=== PATIENT | female | born 2005 | race Caucasian/White ===

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

== ENCOUNTER 2024-01-14 23:39 | Emergency (ER) | payer OTHER, SELFPAY ==
[2024-01-14 23:42] VITALS: BP 139/61; PULSE 92; RESP 16; TEMP 36.5; O2SAT 100; BMI 23.3
--- NOTE | 2024-01-14 23:48 | DI.RAD.S_ITS ---
PROCEDURE: XR CHEST 1V INDICATIONS: chest pain/thoracic back, cough TECHNIQUE: One view of the chest was acquired. COMPARISON: None. FINDINGS: Surgical changes and devices: None. Lungs and pleura: Lungs are clear. No pleural effusions or pneumothorax. Mediastinum: Mediastinal contours appear normal. Heart size is normal. Bones and chest wall: No suspicious bony lesions. Overlying soft tissues appear unremarkable. IMPRESSION: No acute cardiopulmonary abnormality is seen. Approved by: Tarik Daniels M.D. on 01/15/2024 at 1:24
--- NOTE | 2024-01-14 23:50 | ED.GENADULT ---
HPI - General Adult General Chief complaint: Shortness of Breath/Dyspnea Stated complaint: CHEMICAL INHALATION Time Seen by Provider: 01/14/24 23:43 Source: patient, RN notes reviewed and old records reviewed Mode of arrival: Ambulatory Limitations: no limitations History of Present Illness HPI narrative: 18-year-old female with history of anxiety/depression/ADHD who presents with complaint of potential chemical inhalation. Patient states for the past 2-3 days they have had discomfort in her chest thoracic back and sides with deep inhalation. They noticed symptoms started while at work. They has been exposed to bleach fumes. Deny mixing any chemicals such as ammonia. Patient states he had similar symptoms few times in the past but have not persisted. They did reach out to poison control recommended they come for evaluation although they stated symptoms were atypical for bleach exposure. Patient states no fevers or chills. No nasal congestion. Does describe a little bit of sore throat. No rashes or skin changes. No hoarseness. Patient states does have some pain with inhalation, movement is also little bit uncomfortable. They note a cough they note they had some green productive sputum. Has had some nausea but no vomiting. No diarrhea or constipation, no urinary symptoms. No swelling of extremities. Patient is dextroamphetamine, still citalopram, buspirone and hydroxyzine for daily medications. No recent changes. Does smoke and vape tobacco. Quit using alcohol about 6 months ago. They do use marijuana sometimes they deny any other inhalants or recreational drugs. Patient does have a primary care they follow with. No estrogen, no long distance travel, no known pulmonary or cardiac history reported. Related Data Home Medications Medication Instructions Recorded Confirmed buspirone 15 mg tablet 15 mg PO ONCE 11/11/23 11/11/23 dextroamphetamine-amphetamine 10 10 mg PO DAILY 11/11/23 11/11/23 mg tablet (Adderall) escitalopram oxalate 10 mg tablet 10 mg PO DAILY 11/11/23 11/11/23 (Lexapro) hydroxyzine HCl 25 mg tablet 25 mg PO BEDTIME 11/11/23 11/11/23 Allergies Allergy/AdvReac Type Severity Reaction Status Date / Time No Known Drug Allergies Allergy Verified 11/11/23 08:10 Review of Systems Review of Systems ROS Unobtainable: All systems reviewed & are unremarkable except as noted in HPI and below Patient History Social History Smoking Status: Current every day smoker Smoking Status: Current every day smoker Exam Narrative Exam Narrative: GEN: well nourished, well appearing female, alert and oriented x [default value], patient appears to be in mild distress. HEENT: Atraumatic, pupils are equal round reactive to light, extraocular movements are intact, nares are clear, there is no conjunctival pallor. Throat is clear without any exudates, erythema, tonsillar enlargement or uvular deviation, normal speech no stridor, no hoarseness. HEART: Regular rate and rhythm without murmur, clicks, rubs. LUNGS:Lungs clear to auscultation, no wheezes, rales, crackles, chest moves symmetrically, no tachypnea accessory muscle use. ABD:bowel sounds normal, soft, non-tender, no guarding, rebound, rigidity, no masses noted, no hepatosplenomegaly :No CVA tenderness MSCL: Non-tender, no muscle atrophy, muscles strength 5/5 upper and lower extremities, full range of motion, normal gait NEURO:CN 2-12 intact, sensation normal SKIN: No rash, erythema or other skin changes Initial Vital Signs Initial Vital Signs: Vital Signs Temperature 97.7 F 01/14/24 23:42 Pulse Rate 92 H 01/14/24 23:42 Respiratory Rate 16 01/14/24 23:42 Blood Pressure 139/61 01/14/24 23:42 Pulse Oximetry 100 01/14/24 23:42 Oxygen Delivery Method Room Air 01/14/24 23:42 Course Orders Ordered: ED Orders 01/14/24 23:48 XR chest 1V Stat EKG-12 Lead Stat 01/14/24 23:58 Complete Blood Count AUTO DIFF Stat Comprehensive Metabolic Panel Stat Covid-19 + FLU A/B + RSV - PCR Stat D Dimer Stat Lipase Stat Troponin & CK Cardiac Panel Stat Vital Signs Vital signs: Vital Signs - 8 hr 01/14/24 23:42 Temperature 97.7 F Pulse Rate 92 H Respiratory Rate 16 Blood Pressure 139/61 Pulse Oximetry 100 Oxygen Delivery Method Room Air Medical Decision Making Lab Data 01/14/24 23:58 01/14/24 23:58 Labs: Lab Results 01/14/24 Range/Units 23:58 WBC 9.0 (4.5-11.0) X10^3/uL RBC 4.31 (4.0-5.2) X10^6/uL Hgb 13.1 (12.0-16.0) g/dL Hct 37.9 (36-46) % MCV 87.9 (80-100) fL MCH 30.5 (26-34) PG MCHC 34.7 (30-36) % RDW 13.6 (11.6-14.8) % Plt Count 295 (150-400) X10^3/uL Neut % (Auto) 64.5 (50-75) % Lymph % (Auto) 27.1 (25-40) % [place] % (Auto) 5.8 (3-14) % Eos % (Auto) 2.0 (2-4) % Baso % (Auto) 0.6 (0-2) % Neut # (Auto) 5800 (2504-3313) /uL Lymph # (Auto) 2400 (9172-9621) /uL [place] # (Auto) 500 (0-900) /uL Eos # (Auto) 200 (0-450) /uL Baso # (Auto) 100 (0-100) /uL D-Dimer 343 (<500) ng/ml Sodium 138 (137-145) mmol/L Potassium 3.9 (3.4-5.1) mmol/L Chloride 105 (98-107) mmol/L Carbon Dioxide 25 (22-32) mmol/L BUN 14 (7-17) mg/dL Creatinine 0.48 L (0.52-1.04) mg/dL Estimated GFR > 60 (>60) mL/min BUN/Creatinine Ratio 29.2 H (6-22) Glucose 80 (70-100) mg/dL Calcium 9.6 (8.4-10.2) mg/dL Total Bilirubin 0.6 (0.2-1.3) mg/dL AST 31 (14-36) IU/L ALT 27 (<35) IU/L Alkaline Phosphatase 60 (38-126) U/L Total Creatine Kinase 216 H (30-135) U/L Troponin I < 0.012 (0.01-0.034) ng/mL Total Protein 8.1 (6.3-8.2) g/dL Albumin 5.0 (3.5-5.0) g/dL Globulin 3.1 (1.7-4.1) g/dL Albumin/Globulin Ratio 1.6 (1.0-2.8) Lipase 95 (23-300) U/L SARS-CoV-2 (PCR) Negative (Negative) Influenza A (RT-PCR) Flu a negative (NEGATIVE) Influenza B (RT-PCR) Flu b negative (NEGATIVE) RSV (PCR) Negative (Negative) Imaging Data Chest x-ray: My Impression: no acute process, FB consistent with patient piercings. ECG Data Attestation: I personally reviewed and interpreted this ECG as follows: Prior ECG tracings: not available for review Interpretation: Sinus rhythm rate of 75 IL 60 QRS 88 QTC 408, Q 2 3 AVF T-waves are peaked but not throughout. Other acute changes no priors for comparison, S1 Q 3 but no T3. MDM Narrative Medical decision making narrative: 18-year-old female who comes with concern of chest, thoracic pain but also sore throat some green productive sputum. They were concerned about exposure to bleach fumes deny mixing any other chemicals such as ammonia. Patient has been in contact with poison control who states symptoms would be atypical for bleach inhalation exposure. Patient does describe chest discomfort, some infectious symptoms such as green productive sputum and sore throat. Patient overall is well-appearing with a benign exam. Pulses 92 but 100% room air without any tachypnea lungs are clear. Patient has not taken anything for discomfort at home. Labs show a count of 9, hemoglobin of 13 platelets of 295.? D-dimer is negative at 343.? Negative electrolytes, creatinine 0.48, glucose 80 with negative LFTs total CK is 216, troponin is negative. COVID/influenza/RSV is negative. Chest x-ray shows no acute change on prelim. There has been delay from EMR it has been read but is unavailable. Discussed with patient she would like to return home she is to work this morning. No clear source of her pain she has had least 2 days of symptoms with negative troponin negative D-dimer otherwise reassuring chest x-ray she is otherwise well-appearing with a appropriate vitals. Discharge Plan Departure Patient Disposition: Home Clinical Impression: Atypical chest pain Activity Restrictions/Additional Instructions: The final report for your chest x-ray has not resulted. Your workup otherwise is very appropriate in her chest x-ray does not show any obvious changes on preliminary review. Please return if you are having worsening symptoms, increasing, shortness of breath, fevers, lightheadedness or passing out, persistent vomiting or other new or concerning changes. Prescriptions: No Action dextroamphetamine-amphetamine [Adderall] 10 mg tablet 10 mg PO DAILY buspirone 15 mg tablet 15 mg PO ONCE hydroxyzine HCl 25 mg tablet 25 mg PO BEDTIME escitalopram oxalate [Lexapro] 10 mg tablet 10 mg PO DAILY Referrals: Miscellaneous,Doctor, MD [Primary Care Provider] - Stand Alone Forms: Patient Portal/API
[2024-01-15 00:14] LABS: Add Manual Diff / Slide Review NO; Basophils Absolute Auto 100 /uL (0-100); Basophils Percent Auto 0.6 % (0-2); Eosinophils Absolute Auto 200 /uL (0-450); Hematocrit 37.9 % (36-46); Hemoglobin 13.1 g/dL (12.0-16.0); Lymphocytes Absolute Auto 2400 /uL (1100-4500); Lymphocytes Percent Auto 27.1 % (25-40); Mean Corpuscular HGB Conc 34.7 % (30-36); Mean Corpuscular Hemoglobin 30.5 PG (26-34); Mean Corpuscular Volume 87.9 fL (80-100); Monocytes Absolute Auto 500 /uL (0-900); Monocytes Percent Auto 5.8 % (3-14); Neutrophils Absolute Auto 5800 /uL (1500-7000); Neutrophils Percent Auto 64.5 % (50-75); Platelet Count 295 X10^3/uL (150-400); Red Blood Cell Count 4.31 X10^6/uL (4.0-5.2); Red Cell Distribution Width 13.6 % (11.6-14.8)
[2024-01-15 00:18] VITALS: PULSE 91; O2SAT 99
[2024-01-15 00:24] LABS: Alanine Aminotransferase 27 IU/L (<35); Albumin Globulin Ratio 1.6 (1.0-2.8); Alkaline Phosphatase 60 U/L (38-126); Aspartate Aminotransferase 31 IU/L (14-36); BUN Creatinine Ratio 29.2 (6-22); Bilirubin Total 0.6 mg/dL (0.2-1.3); Blood Urea Nitrogen 14 mg/dL (7-17); Calcium 9.6 mg/dL (8.4-10.2); Carbon Dioxide 25 mmol/L (22-32); Chloride 105 mmol/L (98-107); Creatine Kinase 216 U/L (30-135); D Dimer 343 ng/ml (<500); Estimated Glomerular Filt Rate > 60 mL/min (>60); Globulin 3.1 g/dL (1.7-4.1); Glucose 80 mg/dL (70-100); HEMOLYSIS < 15 (0-50); Lipase 95 U/L (23-300); Potassium 3.9 mmol/L (3.4-5.1); Sodium 138 mmol/L (137-145); Total Protein 8.1 g/dL (6.3-8.2)
[2024-01-15 00:30] VITALS: PULSE 75; RESP 24; O2SAT 100
[2024-01-15 00:36] LABS: Troponin I < 0.012 ng/mL (0.01-0.034)
[2024-01-15 00:47] LABS: Influenza A - CEPHEID Flu A NEGATIVE (NEGATIVE); Influenza B - CEPHEID Flu B NEGATIVE (NEGATIVE); Respiratory Syncytial Virus Negative (Negative)
[2024-01-15 00:53] LABS: COVID-19 CEPHEID 4-PLEX PCR Negative (Negative)
[2024-01-15 01:00] VITALS: PULSE 78; RESP 17; O2SAT 98
[2024-01-15 01:30] VITALS: PULSE 68; O2SAT 95
[2024-01-15 01:38] VITALS: BP 116/65; PULSE 72; O2SAT 100
--- NOTE | 2024-01-15 01:55 | PC.NURSE ---
Pt states that she needs to leave due to work in the morning. Pt was advised of AMA paperwork and its meaning. Pt advised that the EMD did not have all of her results and is unable to make a definitive determination. Pt advised that leaving before the EMD was able to process all results may lead to worsening condition or . Pt did sign this form but DC paperwork came from the EMD. Pt was advised that her chest X-ray had not resulted but her blood work did not show any adverse findings. Both AMA and DC signature page filed for hospital records.
== END 2024-01-15 01:45 | disposition home or self-care (01) ==
PROVIDERS: Emergency Provider Emergency Medicine
DX: R07.89 Other chest pain (principal); M54.6 Pain in thoracic spine; J02.9 Acute pharyngitis, unspecified; Z77.110 Contact with and (suspected) exposure to air pollution; Z57.39 Occupational exposure to other air contaminants; Y99.0 Civilian activity done for income or pay; F17.200 Nicotine dependence, unspecified, uncomplicated
CPT/HCPCS: 0241U; 36415; 71045; 80053; 82550; 83690; 84484; 85025; 85379; 93005; 99283; 99284

== ENCOUNTER 2024-10-31 22:55 | Emergency (ER) | payer BC, SELFPAY ==
[2024-10-31 23:01] VITALS: BP 133/78; PULSE 87; RESP 16; TEMP 37.3; O2SAT 100; BMI 23.9
--- NOTE | 2024-10-31 23:05 | DI.US.S_ITS ---
PROCEDURE: US OB <= 14 WEEKS FETUS INDICATIONS: vag bleeding 10weeks OUTSIDE/PRIOR DATING DATA: Last menstrual period (LMP): 08/15/2024 LMP-based estimated date of delivery (KARLA): 05/22/2025 First dating scan (date and location): 10/31/2024 Estimated date of delivery (KARLA) from first dating scan: 06/23/2025. TECHNIQUE: Real-time scanning was performed of the fetus and maternal pelvic organs, with image documentation. COMPARISON: None. FINDINGS: Embryo: Irregular appearing intrauterine gestational sac is seen. No pole or yolk sac is seen. Mean gestational sac diameter measures 1.6 cm with estimated gestational age of 6 weeks, 3 days. Estimated gestational age based on last menstrual period is 11 weeks 0 day. Heart rate: No cardiac activity is detected. Maternal organs: Ovaries are visualized and are within normal limits. IMPRESSION: 1. Irregular appearing intrauterine gestational sac without yolk sac or pole. Finding is concerning for spontaneous . Follow-up with serial beta hCG levels and follow-up ultrasound is recommended. 2. Normal appearing bilateral ovaries. No evidence ectopic gestation. We strive to produce accurate, complete, and clear reports of imaging services. To assist us in improving patient care, this report was composed using standard report templates and voice recognition software. Therefore, it may contain abnormal punctuation, insertions and/or omissions. Occasional wrong-word or sound-alike substitutions may occur. Though we review the report and make efforts to correct it, we do recommend that the report be read carefully in proper context to recognize any text inaccuracies. Dictated by: Costa Wilkerson M.D. on 10/31/2024 at 23:58 Approved by: Costa Wilkerson M.D. on 11/01/2024 at 0:01
--- NOTE | 2024-10-31 23:50 | ED_ITS ---
HPI - General Chief complaint: OB/Uterine Contractions Stated complaint: 10 weeks , small amount of bleeding Time Seen by Provider: 10/31/24 23:05 Source: patient Mode of arrival: Ambulatory Limitations: no limitations History of Present Illness HPI Narrative: 19-year-old female no significant past medical history comes into the ED complaints of pelvic cramping vaginal bleeding states she is approximately she has not on any blood thinners denies any trauma or falls denies any other symptoms such as headache visual disturbances chest pain shortness breath fever chills nausea vomiting abdominal pain or any other GI/ symptoms at this time. Related Data Home Medications Medication Instructions Recorded Confirmed buspirone 15 mg tablet 15 mg PO ONCE 11/11/23 11/11/23 dextroamphetamine-amphetamine 10 10 mg PO DAILY 11/11/23 11/11/23 mg tablet (Adderall) escitalopram oxalate 10 mg tablet 10 mg PO DAILY 11/11/23 11/11/23 (Lexapro) hydroxyzine HCl 25 mg tablet 25 mg PO BEDTIME 11/11/23 11/11/23 Allergies Allergy/AdvReac Type Severity Reaction Status Date / Time No Known Drug Allergies Allergy Verified 11/11/23 08:10 Review of Systems Review of Systems Narrative: General: Denies fever, chills, weight loss HEENT: Denies headache, eye drainage, eye irritation, head trauma, sore throat, voice change Cardiovascular: Denies any chest pain, palpitations, shortness of breath, tachycardia Respiratory: Denies any shortness of breath, cough, wheeze, stridor GI/: Positive vaginal bleeding, pelvic pain Denies any abdominal pain, nausea, vomiting, diarrhea, bright red blood per rectum, melanotic stools, urinary frequency, urinary retention, dysuria, hematuria MSK: Denies any joint pain, muscle pains, swelling Skin: Denies any rashes, lesions, discoloration Neuro: Denies any headache, lightheadedness, dizziness, fainting, weakness Psych: Denies SI/HI Exam Narrative Exam Narrative: General: Cooperative, comfortable, well-developed, not in acute distress HEENT: Normocephalic, atraumatic, PERRLA, normal sclera, eyelids normal, Neck: Active full range of motion, atraumatic Chest: Normal to inspection, negative crepitus, no overlying erythema ecchymosis Respiratory: Normal respiratory effort, not in acute respiratory distress, clear to auscultation bilaterally negative cough, wheeze, tachypnea, rhonchi, rales Cardiology: Regular rate rhythm negative gallop, murmur, rubs GI/: Normal to inspection, soft, nonrigid, no tenderness to palpation, exam deferred MSK: Full range of active range of motion of all 4 extremities, atraumatic Skin: No rashes lesions noted Neuro: Alert awake oriented x3, moves all 4 extremities spontaneously, cranial nerves intact, able to answer all questions appropriately follows commands appropriately Psych: Cooperative, negative suicidal or homicidal ideations Initial Vital Signs Initial Vital Signs: Vital Signs Temperature 99.2 F 10/31/24 23:01 Pulse Rate 87 10/31/24 23:01 Respiratory Rate 16 10/31/24 23:01 Blood Pressure 133/78 10/31/24 23:01 Pulse Oximetry 100 10/31/24 23:01 Oxygen Delivery Method Room Air 10/31/24 23:01 Course Orders Ordered: ED Orders 10/31/24 23:05 OB <= 14 weeks fetus Stat 10/31/24 23:49 ABO RH Type Stat BMP [Basic Metabolic Panel] Stat CBC Auto Diff [Complete Blood Count AUTO DIFF] Stat HCG Quantitative /Beta subunit Stat 11/01/24 00:45 Urine Microscopic Stat Vital Signs Vital signs: Vital Signs - 8 hr 10/31/24 23:01 10/31/24 23:52 10/31/24 23:52 Temperature 99.2 F Pulse Rate 87 103 H Respiratory Rate 16 Blood Pressure 133/78 123/71 Pulse Oximetry 100 100 Oxygen Delivery Method Room Air 11/01/24 00:00 Temperature Pulse Rate 95 H Respiratory Rate 18 Blood Pressure Pulse Oximetry 100 Oxygen Delivery Method MDM - OB/Uterine Contractions Differential Diagnosis Differential diagnosis: Likely other (Electrolyte abnormality, urinary tract infection, threatened ,) Lab Data 10/31/24 23:49 10/31/24 23:49 Labs: Lab Results 10/31/24 11/01/24 Range/Units 23:49 00:45 WBC 7.9 (4.5-11.0) X10^3/uL RBC 3.93 L (4.0-5.2) X10^6/uL Hgb 12.6 (12.0-16.0) g/dL Hct 36.2 (36-46) % MCV 92.1 (80-100) fL MCH 32.1 (26-34) PG MCHC 34.8 (30-36) % RDW 12.7 (11.6-14.8) % Plt Count 273 (150-400) X10^3/uL Neut % (Auto) 50.9 (50-75) % Lymph % (Auto) 37.5 (25-40) % [place] % (Auto) 7.5 (3-14) % Eos % (Auto) 3.4 (2-4) % Baso % (Auto) 0.7 (0-2) % Neut # (Auto) 4000 (7803-7987) /uL Lymph # (Auto) 3000 (8040-5627) /uL [place] # (Auto) 600 (0-900) /uL Eos # (Auto) 300 (0-450) /uL Baso # (Auto) 100 (0-100) /uL Sodium 136 L (137-145) mmol/L Potassium 3.8 (3.4-5.1) mmol/L Chloride 103 (98-107) mmol/L Carbon Dioxide 23 (22-32) mmol/L BUN 9 (7-17) mg/dL Creatinine 0.37 L (0.52-1.04) mg/dL Estimated GFR > 60 (>60) mL/min BUN/Creatinine Ratio 24.3 H (6-22) Glucose 93 (70-100) mg/dL Calcium 9.5 (8.4-10.2) mg/dL Urine RBC 0-1/hpf (0-5/HPF) Urine WBC 0-1/hpf (0-5/HPF) Ur Squamous Epith Cells 5-10 /hpf H (0-5/HPF) Urine Bacteria Few (2-10) H (None) Ur Culture Indicated? Cult not indicated Vol Urine Centrifuged 10ml (spun) Blood Type A Positive Point of Care Testing Test Results Positive Urine Dip Bedside Urine Glucose Negative Bedside Urine Bilirubin - Negative Bedside Urine Ketone - Negative Urine Specific [place] 1.010 Bedside Urine Occult Blood +/- Bedside Urine pH 6.5 Bedside Urine Protein - Negative Bedside Urine Urobilinogen - Negative Bedside Urine Nitrite - Negative Bedside Urine Leukocytes - Negative Esterase Imaging Data US - REGIONAL TRANSFER LIAISON: Radiologist's Impression: [address] [address] Ultrasound Report Signed Patient: Tianna Means MR#: [id number] : 2005 Acct:[id number] Age/Sex: 19 / F Date of Service: 10/31/24 Loc: ED Accession Number: [id number] Procedure: US OB <= 14 weeks fetus Ordering Provider: Misha Byers D.O. PROCEDURE: US OB <= 14 WEEKS FETUS INDICATIONS: vag bleeding 10weeks OUTSIDE/PRIOR DATING DATA: Last menstrual period (LMP): 08/15/2024 LMP-based estimated date of delivery (KARLA): 05/22/2025 First dating scan (date and location): 10/31/2024 Estimated date of delivery (KARLA) from first dating scan: 06/23/2025. TECHNIQUE: Real-time scanning was performed of the fetus and maternal pelvic organs, with image documentation. COMPARISON: None. FINDINGS: Embryo: Irregular appearing intrauterine gestational sac is seen. No pole or yolk sac is seen. Mean gestational sac diameter measures 1.6 cm with estimated gestational age of 6 weeks, 3 days. Estimated gestational age based on last menstrual period is 11 weeks 0 day. Heart rate: No cardiac activity is detected. Maternal organs: Ovaries are visualized and are within normal limits. IMPRESSION: 1. Irregular appearing intrauterine gestational sac without yolk sac or pole. Finding is concerning for spontaneous . Follow-up with serial beta hCG levels and follow-up ultrasound is recommended. 2. Normal appearing bilateral ovaries. No evidence ectopic gestation. MDM Narrative Medical decision making narrative: 19-year-old female without any significant past medical history presents for pelvic cramping and vaginal bleeding patient states that she is approximately 10 weeks , 1st . Patient had lab work imaging urinalysis performed here. Urinalysis not consistent with asymptomatic bacteriuria, lab work unremarkable, ultrasound showing spontaneous . Patient states that she does not have an OBGYN, I had a discussion with Dr. Garcia, of OBGYN, she states no additional recommendations/intervention at this time however patient to follow up in their clinic in the next 24-48 hours states that they will reach out to her, patient was given strict return precautions she verbalized understanding of this and agrees to being discharged home with outpatient follow up Discharge Plan Departure Patient Disposition: Home Clinical Impression: Spontaneous Instructions: DI for Miscarriage Activity Restrictions/Additional Instructions: Please follow up with OBGYN in outpatient setting for your spontaneous Please read the discharge instructions sheet carefully and bring all papers to all doctor follow-up visits, as it may contain information that your doctor may want to see. Disease processes change and evolve, if your symptoms worsen or if you develop any new symptoms that are concerning to you please return for evaluation. Your evaluation today does not show any evidence of any life- threatening/serious illnesses requiring admission to the hospital or surgery. Please follow-up with your doctor for re-evaluation in approximately 1 day. Seek immediate medical attention for any worrisome symptoms. *If you do not have a primary care provider please contact the [facility] Resource line at [phone]. They will ask some questions about your medical history and help get you set up with a doctor in the community. Prescriptions: No Action dextroamphetamine-amphetamine [Adderall] 10 mg tablet 10 mg PO DAILY buspirone 15 mg tablet 15 mg PO ONCE hydroxyzine HCl 25 mg tablet 25 mg PO BEDTIME escitalopram oxalate [Lexapro] 10 mg tablet 10 mg PO DAILY Referrals: Miscellaneous,Doctor, [Primary Care Provider] - Suze Garcia MD [Physician] - As soon as possible Stand Alone Forms: Patient Portal/API/Survey
[2024-10-31 23:52] VITALS: BP 123/71; PULSE 103; O2SAT 100
[2024-10-31 23:58] LABS: Add Manual Diff / Slide Review NO; Basophils Absolute Auto 100 /uL (0-100); Basophils Percent Auto 0.7 % (0-2); Eosinophils Absolute Auto 300 /uL (0-450); Eosinophils Percent Auto 3.4 % (2-4); Hematocrit 36.2 % (36-46); Hemoglobin 12.6 g/dL (12.0-16.0); Lymphocytes Absolute Auto 3000 /uL (1100-4500); Lymphocytes Percent Auto 37.5 % (25-40); Mean Corpuscular HGB Conc 34.8 % (30-36); Mean Corpuscular Hemoglobin 32.1 PG (26-34); Mean Corpuscular Volume 92.1 fL (80-100); Monocytes Absolute Auto 600 /uL (0-900); Monocytes Percent Auto 7.5 % (3-14); Neutrophils Absolute Auto 4000 /uL (1500-7000); Neutrophils Percent Auto 50.9 % (50-75); Platelet Count 273 X10^3/uL (150-400); Red Blood Cell Count 3.93 X10^6/uL (4.0-5.2); Red Cell Distribution Width 12.7 % (11.6-14.8); White Blood Cell Count 7.9 X10^3/uL (4.5-11.0)
[2024-11-01] VITALS: PULSE 95; RESP 18; O2SAT 100
[2024-11-01 00:15] LABS: BUN Creatinine Ratio 24.3 (6-22); Blood Urea Nitrogen 9 mg/dL (7-17); Calcium 9.5 mg/dL (8.4-10.2); Carbon Dioxide 23 mmol/L (22-32); Chloride 103 mmol/L (98-107); Estimated Glomerular Filt Rate > 60 mL/min (>60); Glucose 93 mg/dL (70-100); HEMOLYSIS 48 (0-50); Potassium 3.8 mmol/L (3.4-5.1); Sodium 136 mmol/L (137-145)
[2024-11-01 00:30] VITALS: PULSE 89; RESP 18; O2SAT 100
[2024-11-01 00:41] VITALS: PULSE 94; RESP 18; O2SAT 100
[2024-11-01 00:57] LABS: Bacteria Urine Few (2-10); RBC Urine 0-1/HPF (0-5/HPF); WBC Urine 0-1/HPF (0-5/HPF)
[2024-11-01 00:59] LABS: Culture Indicated Urine Cult Not Indicated; Squamous Epithelial Cell Urine 5-10 /HPF (0-5/HPF); Urine Volume 10mL (spun)
[2024-11-01 01:16] VITALS: BP 139/75
[2024-11-01 01:27] LABS: HCG Quantitative /Beta subunit 20987 mIU/mL
== END 2024-11-01 01:27 | disposition home or self-care (01) ==
PROVIDERS: Emergency Provider Student in an Organized Health Care Education/Training Program
DX: O03.9 Complete or unspecified spontaneous abortion without complication (principal)
CPT/HCPCS: 36415; 76801; 80048; 81003; 81015; 81025; 84702; 85025; 86900; 86901; 99284

== ENCOUNTER → 2025-03-11 16:07 | Outpatient (CLI) | payer BC, SELFPAY | PROVIDERS: Visit Provider Family Medicine | DX: R35.0 Frequency of micturition (principal); R30.9 Painful micturition, unspecified | CPT/HCPCS: 87077; 87086 ==

== ENCOUNTER → 2025-03-18 13:39 | Outpatient (CLI) | payer BC, SELFPAY | PROVIDERS: Visit Provider Nurse Practitioner Family | DX: M54.50 Low back pain, unspecified (principal) | CPT/HCPCS: 87086 ==